=== PATIENT | male | born 1995 | race African-American/Black ===

== ENCOUNTER 2021-05-21 11:54 | Emergency (ER) | payer OTHER ==
[~2021-05-21] VITALS: Ht 175.3 cm; Wt 74.6 kg
[2021-05-21] MEDS ORDERED: IBUP-1114 PO (12:15)
[2021-05-21] MEDS ORDERED: NS 1,000 ML IV ONE (15:35)
[2021-05-21 16:16] LABS: BASO % 0.6 % (0.0-1.0); EOS # 0.2 10^3/uL (0.0-0.5); EOS % 3.1 % (0.0-3.0); HEMATOCRIT 45.8 % (42.0-52.0); LYMPH # 2.1 10^3/uL (1.5-5.0); LYMPH % 38.4 % (24.0-44.0); MEAN CORPUSCULAR HEMOGLOBIN 29.8 pg (27.0-33.0); MEAN CORPUSCULAR HGB CONC 32.8 g/dl (32.0-36.5); MEAN CORPUSCULAR VOLUME 91.1 fl (80.0-96.0); MONO # 0.4 10^3/uL (0.0-0.8); NEUTROPHILS # 2.7 10^3/uL (1.5-8.5); NEUTROPHILS % 50.7 % (36.0-66.0); PLATELET COUNT, AUTOMATED 231 10^3/uL (150-450); RED BLOOD COUNT 5.03 10^6/uL (4.30-6.10); WHITE BLOOD COUNT 5.4 10^3/uL (4.0-10.0)
[2021-05-21 16:39] LABS: ALBUMIN 4.1 GM/DL (3.2-5.2); ALT/SGPT 25 U/L (12-78); BILIRUBIN,DIRECT 0.2 MG/DL (0.0-0.2); BILIRUBIN,TOTAL 0.9 MG/DL (0.2-1.0); LIPASE 50 U/L (73-393); TOTAL PROTEIN 7.5 GM/DL (6.4-8.2)
[2021-05-21 16:50] LABS: MONO REFLEX EBV COMP NEGATIVE (NEGATIVE)
[2021-05-21 16:53] LABS: RSV AMPLIFICATION NEGATIVE (NEGATIVE)
[2021-05-21 17:12] VITALS: BP 115/70
[2021-05-23 14:09] LABS: EBV AB TO NUCLEAR ANTIGEN <18.0 U/mL (0.0-17.9); EBV VIRAL CAPSID AG IgG <18.0 U/mL (0.0-17.9); EBV VIRAL CAPSID AG IgM <36.0 U/mL (0.0-35.9)
== END 2021-05-21 18:14 | disposition home or self-care (01) ==
LOC: M ED 11:54
DX: R10.9 Unspecified abdominal pain (principal); R19.7 Diarrhea, unspecified; R11.2 Nausea with vomiting, unspecified; R07.0 Pain in throat